=== PATIENT | male | born 1975 | race Caucasian/White ===

== ENCOUNTER 2019-06-20 15:20 | Inpatient (IN) | payer OTHER ==
[2019-06-20] MEDS ORDERED: ONDANSETRON 4 MG INJ IV (16:30)
[2019-06-20] MEDS ORDERED: ACETAMINOPHEN 325 MG TAB PO (16:30)
[2019-06-20] MEDS ORDERED: NACL 0.9% 3 ML SYG IV (16:30)
[2019-06-20] MEDS ORDERED: VANCOMYCIN IV PER PHARMACY XX (16:30)
[2019-06-20] MEDS ORDERED: morphine 2 MG INJ IV (16:30)
[2019-06-20] MEDS ORDERED: DOCUSATE SODIUM 100 MG CAP PO (16:30)
[2019-06-20 18:34] LABS: ANION GAP 10 (5-13); BLOOD UREA NITROGEN 19 mg/dl (7-20); CALCIUM 9.6 mg/dl (8.4-10.2); CARBON DIOXIDE 27 mmol/L (21-31); CHLORIDE 104 mmol/L (97-110); Estimated GFR > 60 mL/min (>60); GLUCOSE 94 mg/dl (70-220); POTASSIUM 4.1 mmol/L (3.5-5.1); SODIUM 141 mmol/L (135-144)
[2019-06-20] MEDS: SOD CHLORIDE 0.45% 1,000 ML IV (18:55)
[2019-06-20] MEDS: CEFEPIME 1GM/50 ML (PMX) 50 ML IVPB (20:04)
[2019-06-20] MEDS: VANCOMYCIN HCL 2 GM in SOD CHLORIDE 0.9% 500 ML IVPB (20:48)
[2019-06-21] MEDS: VANCOMYCIN 1.5 GM/NS 250 ML 250 ML IVPB ×2 (05:26→14:47)
[2019-06-21] MEDS: PANTOPRAZOLE (EC) 40 MG TAB PO (05:26)
[2019-06-21 06:53] LABS: ADD MAN DIFF? NO
[2019-06-21 06:56] LABS: WHITE BLOOD COUNT 10.9 10^3/ul (4.8-10.8)
[2019-06-21 06:56] LABS: BASOPHILS % 0.2 % (0.0-2.0); EOSINOPHILS # 0.3 10^3/ul (0.0-0.5); EOSINOPHILS % 2.7 % (0.0-7.0); HEMATOCRIT 35.7 % (42.0-52.0); LYMPHOCYTES # 2.3 10^3/ul (0.8-2.9); MEAN CORPUSCULAR HEMOGLOBIN 27.6 pg (29.0-33.0); MEAN CORPUSCULAR HGB CONC 30.8 g/dl (32.0-37.0); MEAN CORPUSCULAR VOLUME 89.5 fl (82.0-101.0); MEAN PLATELET VOLUME 10.1 fl (7.4-10.4); MONOCYTE # 0.6 10^3/ul (0.3-0.9); MONOCYTES % 5.8 % (0.0-11.0); NEUTROPHIL # 7.7 10^3/ul (1.6-7.5); PLATELET COUNT 421 10^3/UL (140-415); RED BLOOD COUNT 3.99 10^6/ul (4.70-6.10); RED CELL DISTRIBUTION WIDTH 14.3 % (11.5-14.5)
[2019-06-21 07:28] LABS: ANION GAP 7 (5-13); BLOOD UREA NITROGEN 15 mg/dl (7-20); CALCIUM 8.9 mg/dl (8.4-10.2); CARBON DIOXIDE 28 mmol/L (21-31); CHLORIDE 103 mmol/L (97-110); CREATININE 0.79 mg/dl (0.61-1.24); Estimated GFR > 60 mL/min (>60); GLUCOSE 97 mg/dl (70-220); PHOSPHORUS 4.7 mg/dl (2.5-4.9); POTASSIUM 4.6 mmol/L (3.5-5.1); SODIUM 138 mmol/L (135-144)
[2019-06-21] MEDS: ENOXAPARIN 40 MG/0.4 ML SYG SC (08:28)
[2019-06-21] MEDS: CEFEPIME 1GM/50 ML (PMX) 50 ML IVPB ×2 (09:54→20:49)
[2019-06-21] MEDS ORDERED: ENOXAPARIN 40 MG/0.4 ML SYG SC (14:30)
[2019-06-21 21:35] LABS: VANCOMYCIN,TROUGH 21.2 ug/ml (10.0-20.0)
[2019-06-21] MEDS: HYDROCODONE/APAP (5/325) TAB PO (22:00)
[2019-06-22] MEDS: VANCOMYCIN 1 GM 250 ML IVPB ×2 (01:23→09:11)
[2019-06-22 04:50] LABS: ADD MAN DIFF? NO
[2019-06-22 04:59] LABS: WHITE BLOOD COUNT 11.1 10^3/ul (4.8-10.8)
[2019-06-22 04:59] LABS: BASOPHILS % 0.4 % (0.0-2.0); EOSINOPHILS # 0.3 10^3/ul (0.0-0.5); EOSINOPHILS % 2.9 % (0.0-7.0); HEMATOCRIT 36.1 % (42.0-52.0); HEMOGLOBIN 11.2 g/dl (14.0-18.0); LYMPHOCYTES # 3.1 10^3/ul (0.8-2.9); LYMPHOCYTES % 27.9 % (15.0-51.0); MEAN CORPUSCULAR HEMOGLOBIN 27.3 pg (29.0-33.0); MEAN CORPUSCULAR VOLUME 87.8 fl (82.0-101.0); MEAN PLATELET VOLUME 9.8 fl (7.4-10.4); MONOCYTE # 0.7 10^3/ul (0.3-0.9); MONOCYTES % 6.5 % (0.0-11.0); NEUTROPHIL # 6.9 10^3/ul (1.6-7.5); NEUTROPHILS % 61.9 % (39.0-77.0); PLATELET COUNT 453 10^3/UL (140-415); RED BLOOD COUNT 4.11 10^6/ul (4.70-6.10); RED CELL DISTRIBUTION WIDTH 14.4 % (11.5-14.5)
[2019-06-22 05:12] LABS: IRON 23 ug/dl (35-150)
[2019-06-22 05:14] LABS: ANION GAP 7 (5-13); BLOOD UREA NITROGEN 13 mg/dl (7-20); CALCIUM 9.3 mg/dl (8.4-10.2); CARBON DIOXIDE 28 mmol/L (21-31); CHLORIDE 105 mmol/L (97-110); CREATININE 0.93 mg/dl (0.61-1.24); Estimated GFR > 60 mL/min (>60); GLUCOSE 97 mg/dl (70-220); POTASSIUM 4.3 mmol/L (3.5-5.1); SODIUM 140 mmol/L (135-144)
[2019-06-22 05:22] LABS: B-TYPE NATRIURETIC PEPTIDE 77 PG/ML (0-125)
[2019-06-22 05:22] LABS: % IRON SATURATION 9 % SAT (22-52); TOTAL IRON BINDING CAPACITY 245 ug/dl (241-421)
[2019-06-22] MEDS: PANTOPRAZOLE (EC) 40 MG TAB PO (06:03)
[2019-06-22] MEDS: ENOXAPARIN 40 MG/0.4 ML SYG SC (08:21)
[2019-06-22] MEDS: CEFEPIME 1GM/50 ML (PMX) 50 ML IVPB (08:22)
== END 2019-06-22 17:10 | disposition home or self-care (01) | DRG 603 ==
LOC: 2NE 15:20
DX: L03.116 Cellulitis of left lower limb (principal); Z68.42 Body mass index [BMI] 45.0-49.9, adult; I10 Essential (primary) hypertension; F32.9 Major depressive disorder, single episode, unspecified; E66.9 Obesity, unspecified; D50.9 Iron deficiency anemia, unspecified; M21.372 Foot drop, left foot; I89.1 Lymphangitis; Z87.828 Personal history of other (healed) physical injury and trauma
CPT/HCPCS: 73620; 80048; 80202; 83540; 83735; 83880; 84100; 85025; 87040-91; 87081; 93971